=== PATIENT | female | born 1980 | race Caucasian/White ===

== ENCOUNTER 2019-05-09 12:48 | Emergency (ER) | payer SELFPAY ==
[2019-05-09 12:57] VITALS: BP 103/65
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
== END 2019-05-09 14:50 | disposition home or self-care (01) ==
LOC: UCEAST 12:48
DX: H61.21 Impacted cerumen, right ear (principal); H60.91 Unspecified otitis externa, right ear; M54.5 Low back pain; N39.0 Urinary tract infection, site not specified; F17.210 Nicotine dependence, cigarettes, uncomplicated
CPT/HCPCS: 72110; 81003; 84702; 87086; 99203; G0463